=== PATIENT | female | born 1990 | race Caucasian/White ===

== ENCOUNTER 2018-08-04 21:31 | Emergency (ER) ==
[2018-08-04 21:43] VITALS: BP 121/66; TEMP 97.9; BMI 24.0
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
== END 2018-08-04 22:43 | disposition home or self-care (01) ==
LOC: ED 21:31
DX: S01.112A Laceration without foreign body of left eyelid and periocular area, initial encounter (principal)
CPT/HCPCS: 99281